=== PATIENT | female | born 1985 | race Two or more races ===

== ENCOUNTER 2020-05-05 10:20 | Inpatient (IN) | payer BC ==
[~2020-05-05] VITALS: Ht 162.6 cm; Wt 101.2 kg
[2020-05-05] MEDS ORDERED: CARBOPROST TROMETHAMINE 250 MCG/ML AMPUL IM PRN (11:30)
[2020-05-05] MEDS ORDERED: LIDOCAINE HCL 1% 20ML VIAL (Pyxis) INJ INFIL SCH (11:30)
[2020-05-05] MEDS ORDERED: NALOXONE HCL 0.4 MG/ML 1ML VIAL IM PRN (11:30)
[2020-05-05] MEDS ORDERED: METHYLERGONOVINE MALEATE 0.2 MG/ML IM PRN (11:30)
[2020-05-05] MEDS ORDERED: MISOPROSTOL 100MCG TABLET VG SCH (11:30)
[2020-05-05 12:19] LABS: BASOPHILS % 0.6 % (0.0-2.0); EOSINOPHILS % 0.7 % (0.0-5.0); HEMATOCRIT. 24.6 % (36.0-48.0); LYMPHOCYTES % 22.6 % (20.0-50.0); MEAN CORPUSCULAR HEMOGLOBIN 39.6 pg (28.0-32.0); MEAN CORPUSCULAR VOLUME 122.2 fL (81.0-99.0); MEAN PLATELET VOLUME 9.5 fl (7.4-10.4); MONOCYTES % 5.6 % (2.0-8.0); NEUTROPHILS % 70.5 % (40.0-76.0); PLATELET 186 x1000/uL (130-400); RED BLOOD CELL COUNT 2.01 mill/uL (4.2-5.4); RED CELL DISTRIBUTION WIDTH 17.2 % (11.6-14.6)
[2020-05-05 12:30] LABS: INR 0.9; PARTIAL THROMBOPLASTIN TIME 25.3 sec (23.4-31.0); PROTHROMBIN TIME 9.7 sec (9.6-11.0)
[2020-05-05] MEDS ORDERED: ROPIVACAINE HCL/PF EPIDURAL 200 ML EPI SCH (12:30)
[2020-05-05 12:36] LABS: PLATELET ESTIMATE NORMAL
[2020-05-05] MEDS: LACTATED RINGERS 1,000 ML IV SCH (12:38)
[2020-05-05] MEDS: DEXT 5%/LR + PITOCIN 20UNITS/L 1,000 ML IV SCH (12:38)
[2020-05-05 12:42] LABS: CLARITY URINE CLOUDY (CLEAR); COLOR URINE YELLOW (YELLOW); KETONES URINE NEGATIVE (NEGATIVE); LEUKOCYTE ESTERASE URINE 3+ (NEGATIVE); NITRITE URINE NEGATIVE (NEGATIVE); OCCULT BLOOD URINE 2+ (NEGATIVE); PROTEIN URINE NEGATIVE (NEGATIVE); SPECIFIC GRAVITY URINE 1.009 (1.005-1.030)
[2020-05-05 13:03] LABS: HEPATITIS B SURFACE ANTIGEN NEGATIVE
[2020-05-05 14:28] LABS: *AMPHETAMINES SCREEN URINE NEGATIVE (NEGATIVE); *BARBITURATES SCREEN URINE NEGATIVE (NEGATIVE); *BENZODIAZEPINES SCREEN URINE NEGATIVE (NEGATIVE); *COCAINE SCREEN URINE NEGATIVE (NEGATIVE); METHADONE URINE SCREEN NEGATIVE (NEGATIVE); OPIATES URINE SCREEN NEGATIVE (NEGATIVE)
[2020-05-05 14:29] LABS: CANNABINOID URINE SCREEN NEGATIVE (NEGATIVE); PHENCYCLIDINE URINE SCREEN NEGATIVE (NEGATIVE)
[2020-05-06] MEDS: LACTATED RINGERS 1,000 ML IV SCH ×3 (02:57→21:57)
[2020-05-06] MEDS: DEXT 5%/LR + PITOCIN 20UNITS/L 1,000 ML IV SCH (12:33)
[2020-05-06] MEDS ORDERED: LIDOCAINE HCL 1% 20ML VIAL (Pyxis) INJ INFIL SCH (13:00)
[2020-05-06] MEDS ORDERED: CARBOPROST TROMETHAMINE 250 MCG/ML AMPUL IM PRN (13:00)
[2020-05-06] MEDS ORDERED: METHYLERGONOVINE MALEATE 0.2 MG/ML IM PRN (13:00)
[2020-05-06] MEDS ORDERED: MISOPROSTOL 100MCG TABLET VG SCH (13:00)
[2020-05-06] MEDS ORDERED: NALOXONE HCL 0.4 MG/ML 1ML VIAL IM PRN (13:00)
[2020-05-06] MEDS: BUTORPHANOL TARTRATE 2 MG/ML VIAL IV PRN (21:22)
[2020-05-07] MEDS: BUTORPHANOL TARTRATE 2 MG/ML VIAL IV PRN (01:48)
[2020-05-07] MEDS ORDERED: ROPIVACAINE HCL/PF EPIDURAL 200 ML EPI SCH ×2 (04:00→15:30)
[2020-05-07] MEDS: LACTATED RINGERS 1,000 ML IV SCH ×2 (04:24→09:07)
[2020-05-07] MEDS ORDERED: EPHEDRINE SULFATE 50MG/ML VIAL ONE (04:37)
[2020-05-07] MEDS: DEXT 5%/LR + PITOCIN 20UNITS/L 1,000 ML IV SCH (07:16)
[2020-05-07] MEDS ORDERED: METHYLERGONOVINE MALEATE 0.2 MG/ML ONE (07:55)
[2020-05-07] MEDS: AMPICILLIN 2,000 MG in SODIUM CHLORIDE 0.9% 100 ML IV SCH ×3 (09:07→20:28)
[2020-05-07] MEDS ORDERED: ACETAMINOPHEN 500MG TABLET PO NR ×2 (12:15→19:00)
[2020-05-07] MEDS: GENTAMICIN 80MG PREMIX 100 ML IV SCH ×2 (12:30→20:24)
[2020-05-08] VITALS (8 sets, daily range): BP systolic 81–122; BP diastolic 44–86
[2020-05-08] MEDS ORDERED: HEMORRHOIDAL SUPP PR PRN (00:15)
[2020-05-08] MEDS ORDERED: BENZOCAINE/LANOLIN/ALOE VERA SPRAY TOP PRN (00:15)
[2020-05-08] MEDS ORDERED: DEXT 5%/LR + PITOCIN 20UNITS/L 1,000 ML IV SCH (00:15)
[2020-05-08] MEDS ORDERED: DIPHENHYDRAMINE 25MG CAPSULE PO PRN (00:15)
[2020-05-08] MEDS ORDERED: ACETAMINOPHEN WITH CODEINE 300/30MG TABLET PO PRN (00:15)
[2020-05-08] MEDS ORDERED: BISACODYL 10MG SUPP PR PRN (00:15)
[2020-05-08] MEDS ORDERED: LANOLIN OINT 7GM TUBE TOP PRN (00:15)
[2020-05-08] MEDS ORDERED: RHO(D) IMMUNE GLOBULIN 300 MCG/SYR IM PRN (00:15)
[2020-05-08] MEDS ORDERED: IBUPROFEN 400MG TABLET PO PRN (00:15)
[2020-05-08] MEDS ORDERED: GLYCERIN/WITCH HAZEL LEAF MEDICATED PAD TOP PRN (00:15)
[2020-05-08] MEDS: GENTAMICIN 80MG PREMIX 100 ML IV SCH ×3 (05:03→21:43)
[2020-05-08 06:36] LABS: BASOPHILS % 0.3 % (0.0-2.0); HEMOGLOBIN. 7.1 g/dL (12.0-16.0); MEAN CORPUSCULAR VOLUME 123.5 fL (81.0-99.0); MEAN PLATELET VOLUME 9.3 fl (7.4-10.4); MONOCYTES % 3.8 % (2.0-8.0); NEUTROPHILS % 87.9 % (40.0-76.0); PLATELET 175 x1000/uL (130-400); RED BLOOD CELL COUNT 1.86 mill/uL (4.2-5.4); RED CELL DISTRIBUTION WIDTH 17.4 % (11.6-14.6)
[2020-05-08] MEDS: MAGNESIUM/ALUMINUM HYDROXIDE/SIMETHICONE 30ML UDC PO SCH ×3 (08:03→15:45)
[2020-05-08] MEDS: SIMETHICONE 80MG TABLET CHEW PO SCH ×4 (08:04→21:44)
[2020-05-08] MEDS: IBUPROFEN 800MG TABLET PO PRN ×2 (08:04→19:41)
[2020-05-08] MEDS: AMPICILLIN 2,000 MG in SODIUM CHLORIDE 0.9% 100 ML IV SCH ×3 (08:05→20:21)
[2020-05-08] MEDS: PRENATAL VIT/FE FUMARATE/FA TABLET PO SCH (08:05)
[2020-05-08] MEDS: LACTATED RINGERS 1,000 ML IV SCH (11:48)
[2020-05-08] MEDS ORDERED: TETANUS, DIPHTHERIA, PERTUSSIS VAC/PF 0.5ML (>7YR OLD) IM ONE (18:00)
[2020-05-08] MEDS ORDERED: DOCUSATE SODIUM 100MG CAPSULE PO SCH (21:00)
[2020-05-09] VITALS: BP 90/49
[2020-05-09] MEDS: AMPICILLIN 2,000 MG in SODIUM CHLORIDE 0.9% 100 ML IV SCH ×2 (02:36→08:13)
[2020-05-09 04:00] VITALS: BP 108/49
[2020-05-09] MEDS: GENTAMICIN 80MG PREMIX 100 ML IV SCH (05:08)
[2020-05-09] MEDS: IBUPROFEN 800MG TABLET PO PRN (05:17)
[2020-05-09 07:09] LABS: CHLORIDE 110 mEq/L (98-107)
[2020-05-09 07:24] LABS: GENTAMICIN RANDOM 1.4 ug/mL
[2020-05-09] MEDS ORDERED: FERR325T23 PO (07:24)
[2020-05-09] MEDS ORDERED: IBUP-2030 PO (07:24)
[2020-05-09] MEDS ORDERED: FERROUS SULFATE 325MG TABLET PO SCH (07:30)
[2020-05-09 08:00] VITALS: BP 82/42
[2020-05-09] MEDS: PRENATAL VIT/FE FUMARATE/FA TABLET PO SCH (08:13)
== END 2020-05-09 12:39 | disposition home or self-care (01) | DRG 806 ==
LOC: OBSVTOIN 10:20 → 8 EST LDRP 10:20 → 8EST 05-08 01:00
PROVIDERS: ADMIT Obstetrics & Gynecology; ATTEND Obstetrics & Gynecology
PROC: 10E0XZZ Delivery of Products of Conception, External Approach (ICD-10-PCS; principal; 2020-05-07)
PROC: 0KQM0ZZ Repair Perineum Muscle, Open Approach (ICD-10-PCS; 2020-05-07)
PROC: 3E033VJ Introduction of Other Hormone into Peripheral Vein, Percutaneous Approach (ICD-10-PCS; 2020-05-07)
DX: O36.63X0 Maternal care for excessive fetal growth, third trimester, not applicable or unspecified (principal); D62 Acute posthemorrhagic anemia; Z37.0 Single live birth; O99.13 Other diseases of the blood and blood-forming organs and certain disorders involving the immune mechanism complicating the puerperium; O98.32 Other infections with a predominantly sexual mode of transmission complicating childbirth; O77.0 Labor and delivery complicated by meconium in amniotic fluid; O69.81X0 Labor and delivery complicated by cord around neck, without compression, not applicable or unspecified; O99.02 Anemia complicating childbirth; O70.1 Second degree perineal laceration during delivery; Z3A.39 39 weeks gestation of pregnancy; D72.829 Elevated white blood cell count, unspecified; A60.09 Herpesviral infection of other urogenital tract; O99.03 Anemia complicating the puerperium
CPT/HCPCS: 36415; 76805; 76818; 80048; 80170; 80305; 81003; 82947; 85025; 86592; 86703; 86762; 86850; 86900; 87340; 90715; 99281; G0378; J0290; J0595; J1580; J2210; J2590; J2795; J3490; J7050